=== PATIENT | female | born 1935 | race Caucasian/White ===

== ENCOUNTER → 2021-02-25 | Outpatient (CLI) | payer MEDICARE, OTHER | LOC: AMSURD 12:14 | DX: I49.3 Ventricular premature depolarization (principal) ==

== ENCOUNTER 2021-03-03 08:00 | Outpatient (RCR) | payer MEDICARE, OTHER | END 2021-04-04 17:00 | disposition home or self-care (01) | LOC: OT 08:00 | DX: I63.511 Cerebral infarction due to unspecified occlusion or stenosis of right middle cerebral artery (principal) ==